=== PATIENT | male | born 2005 | race Caucasian/White ===

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

== ENCOUNTER 2025-04-01 23:47 | Emergency (ER) | payer OTHER, MEDICAID ==
[~2025-04-01] VITALS: Ht 175.3 cm; Wt 66.0 kg
[~2025-04-01 23:47] MED LIST: IBUP-2028 MT
[2025-04-02 00:02] VITALS: O2SAT 96
[2025-04-02 00:05] VITALS: BP 113/77; PULSE 81; RESP 18; TEMP 36.7; O2SAT 98
[2025-04-02] MEDS: KETOROLAC 15MG/ML VIAL IM ONE (01:39)
[2025-04-02] MEDS ORDERED: LIDO-53 TP (02:40)
[2025-04-02] MEDS ORDERED: NAPR-1176 MT (02:40)
== END 2025-04-02 03:00 | disposition home or self-care (01) ==
LOC: ER 23:47
DX: M25.532 Pain in left wrist (principal); M79.642 Pain in left hand
CPT/HCPCS: 99284; 73110; 73130; J1885